=== PATIENT | male | born 1960 | race American Indian/Alaskan Native ===

== ENCOUNTER 2021-09-26 06:39 | Day surgery (SDC) | payer BC, MEDICAID ==
[2021-09-26] MEDS ORDERED: Propofol 200 MG/20 ML SDV IV ONE (06:40)
[2021-09-26] MEDS ORDERED: Ketamine 500 mg/10 ML MDV IV ONE (06:40)
[2021-09-26] MEDS ORDERED: Sodium Chloride 0.9% 10 ML Syringe FLUSH PRN (06:45)
[2021-09-26] MEDS ORDERED: Lactated Ringers 1,000 ML IV SCH (06:45)
== END 2021-09-26 10:15 | disposition home or self-care (01) ==
LOC: FB.SDS 06:39
PROVIDERS: ATTEND Surgery
DX: Z12.11 Encounter for screening for malignant neoplasm of colon (principal); K51.40 Inflammatory polyps of colon without complications; D12.5 Benign neoplasm of sigmoid colon; D12.3 Benign neoplasm of transverse colon; D12.4 Benign neoplasm of descending colon; E11.59 Type 2 diabetes mellitus with other circulatory complications; E11.69 Type 2 diabetes mellitus with other specified complication; I15.2 Hypertension secondary to endocrine disorders; E66.01 Morbid (severe) obesity due to excess calories; E78.5 Hyperlipidemia, unspecified; F17.210 Nicotine dependence, cigarettes, uncomplicated; Z68.42 Body mass index [BMI] 45.0-49.9, adult
CPT/HCPCS: 00812-QZ; 82947; 88305; J2704; J3490; J7120